=== PATIENT | male | born 1955 | race Caucasian/White ===

== ENCOUNTER 2024-08-04 15:58 | Emergency (ER) | payer OTHER, BC ==
[2024-08-04 16:12] VITALS: BP 108/77; PULSE 83; RESP 20; TEMP 98.5; BMI 21.9
[2024-08-04] MEDS: IBUPROFEN 600 MG TABLET (FP) PO ONE (16:22)
[2024-08-04] MEDS ORDERED: IBUPROFEN 600 MG TABLET (FP) PO ONE (16:23)
== END 2024-08-04 17:28 | disposition home or self-care (01) ==
LOC: FER 15:58
PROC: 0XQJXZZ Repair Right Hand, External Approach (ICD-10-PCS; principal; 2024-08-04)
DX: S61.411A Laceration without foreign body of right hand, initial encounter (principal); W54.0XXA Bitten by dog, initial encounter
CPT/HCPCS: 73130-TC-LT-FY; 99283-25

== ENCOUNTER 2024-08-06 21:31 | Emergency (ER) | payer OTHER, BC ==
[2024-08-06 21:38] VITALS: BP 120/70; PULSE 63; RESP 18; TEMP 98.8; BMI 21.9
[2024-08-06] MEDS ORDERED: DALBAVANCIN HCL 500 MG VIAL (RESTRICTED TO ID ONLY) IVPB ONE (22:12)
[2024-08-06] MEDS: DALBAVANCIN HCL 1,500 MG in DEXTROSE 5%-WATER - 500 ML IVPB ONE (22:37)
[2024-08-06 22:41] LABS: HEMATOCRIT 41.9 % (35.4-49); HEMOGLOBIN 13.9 G/dL (11.7-16.9); MCHC 33.2 g/dl (32.0-35.9); MEAN CELL VOLUME 90.2 fl (80-96); MEAN PLT VOLUME 8.3 fl (7.5-11.1); PLATELET COUNT 137.9 10^3/uL (134-434); RBC 4.64 10^6/uL (4.00-5.60); RDW 13.5 % (11.9-15.9); WHITE BLOOD COUNT 7.1 10^3/uL (4.0-10.8)
[2024-08-06 23:02] LABS: ALK PHOS 68 U/L (45-117); ANION GAP 6 mmol/L (4-13); BILIRUBIN,TOTAL 0.9 mg/dl (0.2-1); CALCIUM 8.7 mg/dl (8.5-10.1); CHLORIDE 109 mmol/L (98-107); CO2 26 mmol/L (21-32); CREATININE 0.9 mg/dl (0.6-1.3); GLUCOSE,RANDOM 131 mg/dl (74-106); POTASSIUM 3.9 mmol/L (3.5-5.1); SGOT/AST 15 U/L (15-37); SGPT/ALT 12 U/L (7-52); SODIUM 141 mmol/L (136-145); TOT PROT 5.8 g/dl (6.4-8.2)
[2024-08-06 23:13] LABS: INR 1.09 (0.83-1.09); PLATELET ESTIMATE ADEQUATE; PROTHROMBIN TIME (PATIENT) 12.4 SEC (9.7-13.0)
== END 2024-08-07 00:27 | disposition home or self-care (01) ==
LOC: FER 21:31
DX: M65.842 Other synovitis and tenosynovitis, left hand (principal); L08.9 Local infection of the skin and subcutaneous tissue, unspecified
CPT/HCPCS: 36415; 80053; 85027; 85610; 85651; 86140; 99284-25; J0875